=== PATIENT | male | born 1990 | race Two or more races ===

== ENCOUNTER 2019-07-18 10:40 | Emergency (ER) | payer MEDICAID, OTHER ==
[~2019-07-18] VITALS: Ht 180.3 cm; Wt 68.0 kg
[2019-07-18 10:50] VITALS: BP 113/78
== END 2019-07-18 13:38 | disposition home or self-care (01) ==
LOC: ER 10:40
DX: S97.82XA Crushing injury of left foot, initial encounter (principal); F17.210 Nicotine dependence, cigarettes, uncomplicated; F12.10 Cannabis abuse, uncomplicated; V86.56XA Driver of dirt bike or motor/cross bike injured in nontraffic accident, initial encounter; Y93.55 Activity, bike riding; Y92.488 Other paved roadways as the place of occurrence of the external cause; Y99.8 Other external cause status
CPT/HCPCS: 29515; 73630